=== PATIENT | male | born 1980 | race African-American/Black ===

== ENCOUNTER 2023-08-08 07:09 | Emergency (ER) | payer MEDICAID, OTHER ==
[~2023-08-08] VITALS: Ht 188 cm; Wt 143.2 kg
[~2023-08-08 07:09] MED LIST: ALBU4TAB6 PO; BENAZEPRIL; IBUP-2029 PO; METOPROLOL
[2023-08-08 07:20] VITALS: O2SAT 95
[2023-08-08] MEDS ORDERED: CEPH500C2 MT (08:13)
[2023-08-08] MEDS ORDERED: NAPR500T7 MT (08:14)
[2023-08-08] MEDS ORDERED: HYDR12.54 MT (08:14)
[2023-08-08] MEDS ORDERED: LISI2.5T47 MT (08:14)
[2023-08-08 08:15] VITALS: BP 158/91; PULSE 100; RESP 17; TEMP 98
[2023-08-08] MEDS ORDERED: ALBU6.7H15 INH (08:15)
[2023-08-08] MEDS ORDERED: AMLO2.5T45 MT (08:15)
== END 2023-08-08 08:39 | disposition home or self-care (01) ==
LOC: ER 07:09
DX: T63.301A Toxic effect of unspecified spider venom, accidental (unintentional), initial encounter (principal); L03.811 Cellulitis of head [any part, except face]; Z76.0 Encounter for issue of repeat prescription; Y92.9 Unspecified place or not applicable
CPT/HCPCS: 99283